=== PATIENT | male | born 1970 | race American Indian/Alaskan Native ===

== ENCOUNTER 2016-11-05 01:40 | Emergency (ER) | payer MEDICAID, OTHER ==
[2016-11-05] MEDS ORDERED: ZOFRAN ODT PO ONE (02:12)
[2016-11-05] MEDS ORDERED: TYLENOL PO ONE (02:12)
[2016-11-05 03:26] LABS: INR 0.99 (0.87-1.13)
[2016-11-05 03:27] LABS: Partial Thromboplastin Time 29.7 Sec. (24.2-36.6)
[2016-11-05 03:40] LABS: Anion Gap 20 mmol/L; Blood Urea Nitrogen 22 mg/dL (9-20); Calcium 8.7 mg/dL (8.4-10.2); Carbon Dioxide 23 mmol/L (22-30); Chloride 98.2 mmol/L (98-107); Glucose 107 mg/dL (75-100); Potassium 3.8 mmol/L (3.6-5.0); Sodium 137 mmol/L (137-145)
--- NOTE | 2016-11-05 03:44 | Cat Scan Report ---
FINAL REPORT PROCEDURE: CT HEAD/BRAIN WO CON TECHNIQUE: Computerized tomography of the head was performed without contrast material. HISTORY: H/A HX MIGRAINES AND SINUSITIS COMPARISON: No prior studies are available for comparison. FINDINGS: Skull and scalp: Normal. Paranasal sinuses: Mild opacification of the ethmoid sinuses.. Ventricles and subarachnoid spaces: Normal. Cerebrum: No evidence of hemorrhage, acute infarction or mass . Cerebellum and brainstem: No evidence of hemorrhage, acute infarction or mass. Vasculature: Normal. Comments: None. IMPRESSION: There is no evidence of an acute intracranial process
[2016-11-05 03:59] LABS: Basophils % (Auto) 0.6 % (0.0-1.8); Eosinophils % (Auto) 5.6 % (0.0-4.3); Hematocrit 41.3 % (35.5-45.6); Hemoglobin 13.2 gm/dl (11.8-15.2); Mean Corpuscular HGB Conc 32 % (32-34); Mean Corpuscular Volume 81 fl (84-94); Platelet Count 195 K/mm3 (140-440); Red Blood Count 5.13 M/mm3 (3.65-5.03); Red Cell Distribution Width 14.9 % (13.2-15.2); White Blood Count 6.6 K/mm3 (4.5-11.0)
[2016-11-05 04:08] LABS: Mean Corpuscular Hemoglobin 26 pg (28-32)
[2016-11-05] MEDS ORDERED: TORADOL IM ONE (07:02)
[2016-11-05] MEDS ORDERED: NORCO 5/325 PO ONE (07:02)
[2016-11-05] MEDS ORDERED: SUDAFED PO ONE (07:04)
--- NOTE | 2016-11-05 07:17 | Emergency Department Report ---
ED ENT HPI - General Chief complaint: Dizziness Stated complaint: HEADACHE, VOMITING Time Seen by Provider: 11/05/16 06:32 Source: patient, family Mode of arrival: Ambulatory Limitations: No Limitations - History of Present Illness Initial comments: 46-year-old male with past medical history previous sinus headaches presents to the hospital complains of headache similar to previous sinus infection. The past 3 weeks intermittently patient has had right sided frontal and maxillary headache. Right-sided nasal congestion. Patient reports that air going up his right nostril increases the discomfort and feels better when he covers his nostril on that side. Pain is intermittent, sharp, rated 10/10 intensity. No aggravating or alleviating factors reported. Patient having intermittent nausea and vomiting. No reports of fever, neck pain focal numbness, weakness, blurred vision. Patient received Tylenol and Zofran prior to my evaluation and reports that Zofran has helped with nausea. He continues to have headache. - Related Data Previous Rx's Medication Instructions Recorded Last Taken Type Amoxicillin/K Clav Tab [Augmentin 1 tab PO Q12HR #14 tab 11/05/16 Unknown Rx 875 mg] Fluticasone [Flonase] 1 spray NS QDAY #1 bottle 11/05/16 Unknown Rx HYDROcodone/APAP 5-325 [[place] 1 each PO Q6HR PRN #20 tablet 11/05/16 Unknown Rx 5/325] Ibuprofen [Motrin] 800 mg PO Q8HR PRN #30 tablet 11/05/16 Unknown Rx Ondansetron [Zofran Odt] 4 mg PO Q8HR PRN #20 tab.rapdis 11/05/16 Unknown Rx Pseudoephedrine ER [Sudafed 12 Hr] 120 mg PO BID PRN #20 tablet.er 11/05/16 Unknown Rx Allergies Allergy/AdvReac Type Severity Reaction Status Date / Time No Known Allergies Allergy Verified 08/28/14 22:57 ED Dental HPI - General Chief complaint: Dizziness Stated complaint: HEADACHE, VOMITING Time Seen by Provider: 11/05/16 06:32 Source: patient, family Mode of arrival: Ambulatory Limitations: No Limitations - Related Data Previous Rx's Medication Instructions Recorded Last Taken Type Amoxicillin/K Clav Tab [Augmentin 1 tab PO Q12HR #14 tab 11/05/16 Unknown Rx 875 mg] Fluticasone [Flonase] 1 spray NS QDAY #1 bottle 11/05/16 Unknown Rx HYDROcodone/APAP 5-325 [[place] 1 each PO Q6HR PRN #20 tablet 11/05/16 Unknown Rx 5/325] Ibuprofen [Motrin] 800 mg PO Q8HR PRN #30 tablet 11/05/16 Unknown Rx Ondansetron [Zofran Odt] 4 mg PO Q8HR PRN #20 tab.rapdis 11/05/16 Unknown Rx Pseudoephedrine ER [Sudafed 12 Hr] 120 mg PO BID PRN #20 tablet.er 11/05/16 Unknown Rx Allergies Allergy/AdvReac Type Severity Reaction Status Date / Time No Known Allergies Allergy Verified 08/28/14 22:57 ED Review of Systems ROS: Stated complaint: HEADACHE, VOMITING Other details as noted in HPI Comment: All other systems reviewed and negative Other: Constitutional: No fevers chills Eyes: No eye pain visual changes ENT: As per HPI Neck: Denies pain Respiratory: Denies cough wheezing shortness of breath Cardiovascular: Denies chest pain, palpitations, syncope GI: Denies abdominal pain : Denies dysuria Musculoskeletal: Denies back pain Skin: Denies rash, lesions, erythema Neurologic: Denies numbness, weakness Psychiatric: Denies suicidal ideation, hallucinations ED Past Medical Hx - Past Medical History Previous Medical History?: Yes Additional medical history: Sinus headaches, migraine - Surgical History Past Surgical History?: No - Social History Smoking Status: Never Smoker Substance Use Type: None - Medications Home Medications: Home Medications Medication Instructions Recorded Confirmed Last Taken Type Amoxicillin/K Clav Tab [Augmentin 1 tab PO Q12HR #14 tab 11/05/16 Unknown Rx 875 mg] Fluticasone [Flonase] 1 spray NS QDAY #1 bottle 11/05/16 Unknown Rx HYDROcodone/APAP 5-325 [[place] 1 each PO Q6HR PRN #20 tablet 11/05/16 Unknown Rx 5/325] Ibuprofen [Motrin] 800 mg PO Q8HR PRN #30 tablet 11/05/16 Unknown Rx Ondansetron [Zofran Odt] 4 mg PO Q8HR PRN #20 tab.rapdis 11/05/16 Unknown Rx Pseudoephedrine ER [Sudafed 12 Hr] 120 mg PO BID PRN #20 tablet.er 11/05/16 Unknown Rx ED Physical Exam - General Limitations: No Limitations - Other Other exam information: General: No limitations, patient is alert in no acute distress Head exam: Atraumatic, normocephalic Eyes exam: Normal appearance, pupils equal reactive to light, extraocular movements intact ENT: Moist mucous membrane, right-sided nasal congestion with boggy nasal turbinates. Positive right maxillary sinus tenderness. No frontal tenderness Neck exam: Normal inspection, full range of motion, no meningismus nontender Respiratory exam: Clear to auscultation bilateral, no wheezes, rales, crackles Cardiovascular: Normal rate and rhythm, normal heart sounds Abdomen: Soft, nondistended, and nontender, with normal bowel sounds, no rebound, or guarding Extremity: Full range of motion normal inspection no deformity Back: Normal Inspection, full range of motion, no tenderness Neurologic: Alert, oriented x3, cranial nerves intact, no motor or sensory deficit Psychiatric: normal affect, normal mood Skin: Warm, dry, intact ED Course Vital Signs 11/05/16 11/05/16 11/05/16 01:58 02:24 03:19 Temperature 98.3 F 98.8 F Pulse Rate 74 75 Respiratory 18 20 20 Rate Blood Pressure 134/88 Blood Pressure 115/72 [Left] O2 Sat by Pulse 97 99 Oximetry 11/05/16 11/05/16 03:25 07:17 Temperature Pulse Rate Respiratory 20 20 Rate Blood Pressure Blood Pressure [Left] O2 Sat by Pulse 98 Oximetry - Reevaluation(s) Reevaluation #1: 11/05/16 07:17 Toradol and [place] order for additional pain relief. Sudafed order for nasal congestion ED Medical Decision Making - Lab Data Result diagrams: 11/05/16 02:30 11/05/16 02:30 Lab Results 11/05/16 11/05/16 11/05/16 Range/Units 02:30 02:30 02:30 WBC 6.6 (4.5-11.0) K/mm3 RBC 5.13 H (3.65-5.03) M/mm3 Hgb 13.2 (11.8-15.2) gm/dl Hct 41.3 (35.5-45.6) % MCV 81 L (84-94) fl MCH 26 L (28-32) pg MCHC 32 (32-34) % RDW 14.9 (13.2-15.2) % Plt Count 195 (140-440) K/mm3 Lymph % (Auto) 26.2 (13.4-35.0) % Travis % (Auto) 11.7 H (0.0-7.3) % Eos % (Auto) 5.6 H (0.0-4.3) % Baso % (Auto) 0.6 (0.0-1.8) % Lymph # 1.7 (1.2-5.4) K/mm3 Travis # 0.8 (0.0-0.8) K/mm3 Eos # 0.4 (0.0-0.4) K/mm3 Baso # 0.0 (0.0-0.1) K/mm3 Seg Neutrophils % 55.9 (40.0-70.0) % Seg Neutrophils # 3.7 (1.8-7.7) K/mm3 PT 13.0 (12.2-14.9) Sec. INR 0.99 (0.87-1.13) APTT 29.7 (24.2-36.6) Sec. D-Dimer < 135.00 (0-234) ng/mlDDU Sodium 137 (137-145) mmol/L Potassium 3.8 (3.6-5.0) mmol/L Chloride 98.2 (98-107) mmol/L Carbon Dioxide 23 (22-30) mmol/L Anion Gap 20 mmol/L BUN 22 H (9-20) mg/dL Creatinine 1.0 (0.8-1.5) mg/dL Estimated GFR > 60 ml/min BUN/Creatinine Ratio 22.00 % Glucose 107 H (75-100) mg/dL Calcium 8.7 (8.4-10.2) mg/dL - Radiology Data Radiology results: report reviewed (CT head: No acute findings) - Medical Decision Making Plan to discharge home on treatment for right maxillary sinusitis. - Differential Diagnosis migraine, hemorrhage, sinusitis, sinus headache Critical Care Time: No Critical care attestation.: If time is entered above; I have spent that time in minutes in the direct care of this critically ill patient, excluding procedure time. ED Disposition Clinical Impression: Right maxillary sinusitis, Vomiting Disposition: DISCHARGED TO HOME OR SELFCARE Is pt being admited?: No Does the pt Need Aspirin: No Condition: Stable Instructions: Sinusitis (ED), Acute Nausea and Vomiting (ED) Additional Instructions: Take the medication as prescribed. Follow-up with the primary care doctor provided or the doctor of your choice. Return if symptoms worsen. Prescriptions: Amoxicillin/K Clav Tab [Augmentin 875 mg] 1 tab PO Q12HR #14 tab Fluticasone [Flonase] 1 spray NS QDAY #1 bottle HYDROcodone/APAP 5-325 [[place] 5/325] 1 each PO Q6HR PRN #20 tablet PRN Reason: Pain Ibuprofen [Motrin] 800 mg PO Q8HR PRN #30 tablet PRN Reason: Pain Ondansetron [Zofran Odt] 4 mg PO Q8HR PRN #20 tab.rapdis PRN Reason: Nausea And Vomiting Pseudoephedrine ER [Sudafed 12 Hr] 120 mg PO BID PRN #20 tablet.er PRN Reason: Nasal Congestion Referrals: PRIMARY CARE, [Primary Care Provider] - 3-5 Days Boom pack MD [Other] - 3-5 Days Time of Disposition: 08:17
[2016-11-05 08:45] VITALS: BP 118/76
== END 2016-11-05 08:46 | disposition home or self-care (01) ==
LOC: ED 01:40
DX: J01.00 Acute maxillary sinusitis, unspecified (principal); R11.10 Vomiting, unspecified; G43.909 Migraine, unspecified, not intractable, without status migrainosus
CPT/HCPCS: 36415; 70450; 80048; 85025; 85379; 85610; 85730; 96372; 99284; J1885; Q0162

== ENCOUNTER 2019-03-13 19:58 | Emergency (ER) | payer OTHER ==
[2019-03-13] MEDS ORDERED: IBUPROFEN PO ONE ×3 (20:17→23:22)
--- NOTE | 2019-03-13 20:17 | Event Note ---
ED Screening Note ED Screening Note: sinus infection headache no vomiting no head trauma no cig no drugs occ etoh took goodys has had before rx none pmh none psh none no focal def This initial assessment/diagnostic orders/clinical plan/treatment(s) is/are subject to change based on patients health status, clinical progression and re- assessment by fellow clinical providers in the ED. Further treatment and workup at subsequent clinical providers discretion. Patient/guardian urged not to elope from the ED as their condition may be serious if not clinically assessed and managed. Initial orders include: medicate in ACC
[2019-03-13 20:18] VITALS: BP 118/79
[2019-03-13] MEDS ORDERED: BENADRYL PO ONE (23:21)
[2019-03-13] MEDS ORDERED: DECADRON IM ONE (23:21)
[2019-03-13] MEDS ORDERED: AUGMENTIN 875 MG PO ONE (23:21)
--- NOTE | 2019-03-13 23:31 | Emergency Department Report ---
- General Chief Complaint: Upper Respiratory Infection Stated Complaint: SINUS PROBLEMS Time Seen by Provider: 03/13/19 20:16 Source: patient Mode of arrival: Ambulatory Limitations: No Limitations - History of Present Illness Initial Comments: Patient is a 48-year-old -Al[place] male who presents for Sinus pain and pressure history of recurrent sinusitis states fever chills no fever noted in triage is no sore throat no ear pain no shortness of breath no wheezing no stridor MD Complaint: sinus pain Onset/Timin -: days(s) Severity: moderate Severity scale (0 -10): 5 Quality: sharp Consistency: constant Improves With: nothing Worsens With: activity Associated Symptoms: fever, chills, rhinorrhea, nasal congestion Treatments Prior to Arrival: none - Related Data Previous Rx's Medication Instructions Recorded Last Taken Type Amoxicillin/K Clav Tab [Augmentin 1 tab PO Q12HR #14 tab 11/05/16 Unknown Rx 875 mg] Fluticasone [Flonase] 1 spray NS QDAY #1 bottle 11/05/16 Unknown Rx HYDROcodone/APAP 5-325 [[place] 1 each PO Q6HR PRN #20 tablet 11/05/16 Unknown Rx 5/325] Ibuprofen [Motrin] 800 mg PO Q8HR PRN #30 tablet 11/05/16 Unknown Rx Ondansetron [Zofran Odt] 4 mg PO Q8HR PRN #20 tab.rapdis 11/05/16 Unknown Rx Pseudoephedrine ER [Sudafed 12 Hr] 120 mg PO BID PRN #20 tablet.er 11/05/16 Unknown Rx Amoxicillin/Potassium Clav 1 each PO BID 10 Days #20 tablet 03/13/19 Unknown Rx [Augmentin 875-125 Tablet] Ibuprofen [Motrin 800 MG tab] 800 mg PO Q8HR PRN #30 tablet 03/13/19 Unknown Rx Oxymetazoline 0.05% [Vicks Sinex] 2 spray NS BID 3 Days #1 bottle 03/13/19 Unknown Rx diphenhydrAMINE [Benadryl CAP] 25 mg PO Q8HR PRN #30 capsule 03/13/19 Unknown Rx Allergies Allergy/AdvReac Type Severity Reaction Status Date / Time No Known Allergies Allergy Verified 08/28/14 22:57 ED Review of Systems ROS: Stated complaint: SINUS PROBLEMS Other details as noted in HPI Constitutional: denies: chills, fever Eyes: denies: eye pain, eye discharge, vision change ENT: congestion. denies: ear pain, throat pain Respiratory: denies: cough, shortness of breath, wheezing Cardiovascular: denies: chest pain, palpitations Endocrine: no symptoms reported Gastrointestinal: denies: abdominal pain, nausea, vomiting, diarrhea Genitourinary: denies: urgency, dysuria Musculoskeletal: denies: back pain, joint swelling, arthralgia Skin: denies: rash, lesions Neurological: denies: headache, weakness, paresthesias, vertigo Psychiatric: denies: anxiety, depression Hematological/Lymphatic: denies: easy bleeding, easy bruising ED Past Medical Hx - Past Medical History Previous Medical History?: No Additional medical history: Sinus headaches, migraine - Surgical History Past Surgical History?: No - Social History Smoking Status: Never Smoker Substance Use Type: Alcohol - Medications Home Medications: Home Medications Medication Instructions Recorded Confirmed Last Taken Type Amoxicillin/K Clav Tab [Augmentin 1 tab PO Q12HR #14 tab 11/05/16 Unknown Rx 875 mg] Fluticasone [Flonase] 1 spray NS QDAY #1 bottle 11/05/16 Unknown Rx HYDROcodone/APAP 5-325 [[place] 1 each PO Q6HR PRN #20 tablet 11/05/16 Unknown Rx 5/325] Ibuprofen [Motrin] 800 mg PO Q8HR PRN #30 tablet 11/05/16 Unknown Rx Ondansetron [Zofran Odt] 4 mg PO Q8HR PRN #20 tab.rapdis 11/05/16 Unknown Rx Pseudoephedrine ER [Sudafed 12 Hr] 120 mg PO BID PRN #20 tablet.er 11/05/16 Unknown Rx Amoxicillin/Potassium Clav 1 each PO BID 10 Days #20 tablet 03/13/19 Unknown Rx [Augmentin 875-125 Tablet] Ibuprofen [Motrin 800 MG tab] 800 mg PO Q8HR PRN #30 tablet 03/13/19 Unknown Rx Oxymetazoline 0.05% [Vicks Sinex] 2 spray NS BID 3 Days #1 bottle 03/13/19 Unknown Rx diphenhydrAMINE [Benadryl CAP] 25 mg PO Q8HR PRN #30 capsule 03/13/19 Unknown Rx ED Physical Exam - General Limitations: No Limitations General appearance: alert, in no apparent distress - Head Head exam: Present: atraumatic, normocephalic - Eye Eye exam: Present: normal appearance, PERRL, EOMI Pupils: Present: normal accommodation - ENT ENT exam: Present: mucous membranes moist, TM's normal bilaterally, normal external ear exam, other (bilat maxillary sinus pain to palpation mild swelling no erythema nare boggy bilat erythema clear yellow rhinorrhea ) - Expanded ENT Exam Expanded Throat exam: Positive: tonsillar erythema, tonsillomegaly, other (uvula midline no stridor ). Negative: tonsillar exudate, R peritonsillar mass, L peritonsillar mass - Neck Neck exam: Present: normal inspection, full ROM, lymphadenopathy. Absent: tenderness, meningismus, thyromegaly - Expanded Neck Exam Expanded Neck exam: Absent: tenderness, midline deformity, anterior neck swelling, thyroid mass, carotid bruit, tracheal deviation - Respiratory Respiratory exam: Present: normal lung sounds bilaterally. Absent: respiratory distress, wheezes, rales, rhonchi, stridor, chest wall tenderness - Cardiovascular Cardiovascular Exam: Present: regular rate, normal rhythm, normal heart sounds. Absent: systolic murmur, diastolic murmur, rubs, gallop - GI/Abdominal GI/Abdominal exam: Present: soft, normal bowel sounds. Absent: distended, tenderness, guarding, rebound, rigid, bruit, hernia - Rectal Rectal exam: Present: deferred - Extremities Exam Extremities exam: Present: normal inspection, full ROM, normal capillary refill - Back Exam Back exam: Present: normal inspection, full ROM. Absent: tenderness, CVA tenderness (R), CVA tenderness (L), rash noted - Neurological Exam Neurological exam: Present: alert, oriented X3, CN II-XII intact, normal gait - Psychiatric Psychiatric exam: Present: normal affect, normal mood - Skin Skin exam: Present: warm, dry, intact, normal color. Absent: rash ED Course Vital Signs 03/13/19 20:16 Temperature 98.4 F Pulse Rate 63 Respiratory 18 Rate Blood Pressure 118/79 O2 Sat by Pulse 98 Oximetry ED Medical Decision Making - Medical Decision Making this is sinusitis, plan augmentin afrin, ibuprofen benadryl follow up with ENT in 2-3 days. pt verbalized agreement and understanding of same. Critical care attestation.: If time is entered above; I have spent that time in minutes in the direct care of this critically ill patient, excluding procedure time. ED Disposition Clinical Impression: Acute maxillary sinusitis Qualifiers: Recurrence: recurrent Qualified Code(s): J01.01 - Acute recurrent maxillary sinusitis Disposition: TO HOME OR SELFCARE Is pt being admited?: No Does the pt Need Aspirin: No Condition: Stable Instructions: Sinusitis (ED) Prescriptions: Amoxicillin/Potassium Clav [Augmentin 875-125 Tablet] 1 each PO BID 10 Days #20 tablet diphenhydrAMINE [Benadryl CAP] 25 mg PO Q8HR PRN #30 capsule PRN Reason: Congestion Ibuprofen [Motrin 800 MG tab] 800 mg PO Q8HR PRN #30 tablet PRN Reason: pain fever Oxymetazoline 0.05% [Vicks Sinex] 2 spray NS BID 3 Days #1 bottle Referrals: [facility] [Provider Group] - 3-5 Days Forms: Work/School Release Form(ED) Time of Disposition: 23:41
== END 2019-03-14 00:08 | disposition home or self-care (01) ==
LOC: ED 19:58
DX: J01.01 Acute recurrent maxillary sinusitis (principal); G43.909 Migraine, unspecified, not intractable, without status migrainosus; Z79.899 Other long term (current) drug therapy
CPT/HCPCS: 99281; J1100